=== PATIENT | female | born 1985 | race Caucasian/White ===

== ENCOUNTER 2016-10-04 00:19 | Emergency (ER) | payer SELFPAY ==
[~2016-10-04] VITALS: Ht 162.6 cm; Wt 80.0 kg
[2016-10-04 00:23] VITALS: BP 116/70; PULSE 107; RESP 18; TEMP 98.3; O2SAT 94
[2016-10-04 01:01] VITALS: BP 127/68; PULSE 102; RESP 18; O2SAT 95
[2016-10-04] MEDS ORDERED: EQUE200C PO (01:11)
[2016-10-04] MEDS ORDERED: EQUE100C PO (01:11)
[2016-10-04] MEDS ORDERED: LISI10TA3 PO (01:11)
[2016-10-04] MEDS ORDERED: LEXA10TA PO (01:11)
[2016-10-04] MEDS ORDERED: LEVO.1 PO (01:11)
--- NOTE | 2016-10-04 01:52 | PD ---
HPI Chief Complaint: Alcohol/Drug Intoxication Time Seen by Provider: 01:52 Travel History International Travel<30 days: No Contact w/Intl Traveler<30days: No Traveled to known affect area: No History of Present Illness HPI 31-year-old female presents to the emergency department for evaluation. Patient states that she has been drinking alcohol and she used cocaine for the first time last night. This caused her heart to feel like it was racing and she began to have a panic attack. Patient states that she came here to feel safe and to make sure she was okay. She is currently asymptomatic. Denies any chest pain or tightness. No difficulty breathing. No focal deficits or weakness. Patient's no other symptoms to report at this time. [facility] Past Medical History Anxiety: Yes Diminished Hearing: No Hypertension: Yes Seizures: Yes Thyroid Disease: Yes ?: Not LMP: 09/21/16 Past Surgical History Surgical History: No Previous Surgery Social History Alcohol Use: Yes Tobacco Use: No Substance Use: Yes Allergies-Medications (Allergen,Severity, Reaction): Coded Allergies: Tylenol (Verified Adverse Reaction, Mild, Tingling, 10/04/16) Reported Meds & Prescriptions Reported Meds & Active Scripts Active Reported Equetro ER 12 HR (Carbamazepine ER 12 HR) 100 Mg Cap 100 Mg PO HS Equetro ER 12 HR (Carbamazepine ER 12 HR) 200 Mg Cap 200 Mg PO DAILY Lexapro (Escitalopram Oxalate) 10 Mg Tab 10 Mg PO DAILY Lisinopril 10 Mg Tab 10 Mg PO DAILY Synthroid (Levothyroxine Sodium) 100 Mcg Tab 100 Mcg PO DAILY Review of Systems Except as stated in HPI: all other systems reviewed are Neg Physical Exam Narrative GENERAL: Well-nourished female patient, in no acute distress SKIN: Focused skin assessment warm/dry. HEAD: Atraumatic. Normocephalic. EYES: Pupils equal and round. No scleral icterus. No injection or drainage. ENT: No nasal bleeding or discharge. Mucous membranes pink and moist. NECK: Trachea midline. No JVD. CARDIOVASCULAR: Elevated rate and rhythm. No murmur appreciated. RESPIRATORY: No accessory muscle use. Clear to auscultation. Breath sounds equal bilaterally. GASTROINTESTINAL: Abdomen soft, non-tender, nondistended. Hepatic and splenic margins not palpable. MUSCULOSKELETAL: No obvious deformities. No clubbing. No cyanosis. No edema. NEUROLOGICAL: Awake and alert. No obvious cranial nerve deficits. Motor grossly within normal limits. Normal speech. Data Data Last Documented VS Vital Signs Date Time Temp Pulse Resp B/P Pulse Ox O2 Delivery O2 Flow Rate FiO2 10/04/16 01:01 102 18 127/68 95 Room Air 10/04/16 00:23 98.3 Orders Sodium Chlor 0.9% 1000 Ml Inj (Ns 1000 M (10/04/16 02:15) Electrocardiogram (10/04/16 ) MDM Medical Decision Making Medical Screen Exam Complete: Yes Emergency Medical Condition: Yes Medical Record Reviewed: Yes Differential Diagnosis Substance abuse versus intoxication versus cocaine dependency versus infiltrate he Narrative Course 31-year-old female presents to the emergency department for evaluation. Patient appears without distress. She does report doing cocaine for the first time which induced a panic attack. She is calm here. She states that she feels much better. She'll be observed until she is clinically sober at which time she'll be discharged home. She is counseled on drug abuse and encouraged to seek help. She she agrees to return immediately with any acute worsening of symptoms. Diagnosis Primary Impression: Substance abuse Additional Impression: Anxiety Referrals: [facility] (Out patient) Primary Care Physician Patient Instructions: Cocaine Abuse (ED), General Instructions Additional Instructions: Do not use illegal drugs Utilize outpatient resources to help you stop using illegal drugs and alcohol Return to ED with acute worsening of symptoms Med/Other Pt SpecificInfo: No Change to Meds Disposition: 01 DISCHARGE HOME Condition: Stable Beth Campo October 04, 2016 01:52
[2016-10-04] MEDS ORDERED: SODIUM CHLOR 0.9% 1000 ML INJ 1,000 ML IV ONE (02:15)
--- NOTE | 2016-10-04 13:46 | EKG ---
Date Performed: 10/04/2016 Time Performed: 02:30:44 PTAGE: 31 years EKG: SINUS TACHYCARDIA ABNORMAL RHYTHM ECG NO PREVIOUS TRACING DOCTOR: Sergio Callaway Interpretating Date/Time 10/04/2016 13:42:20
== END 2016-10-04 05:27 | disposition home or self-care (01) ==
LOC: NEPE 00:19
DX: F14.10 Cocaine abuse, uncomplicated (principal); F10.10 Alcohol abuse, uncomplicated; F41.9 Anxiety disorder, unspecified; R00.0 Tachycardia, unspecified; I10 Essential (primary) hypertension; E07.9 Disorder of thyroid, unspecified
CPT/HCPCS: 93005; 96360; 99285; J7030